=== PATIENT | male | born 1945 | race Caucasian/White ===

== ENCOUNTER → 2018-02-07 | Outpatient (CLI) | payer OTHER ==
[~2018-02-07] MED LIST: REGADENOSON 0.4 MG/5 ML SYRINGE ONE
== END | disposition home or self-care (01) ==
LOC: CFH 06:59
PROVIDERS: ATTEND Internal Medicine Cardiovascular Disease
DX: I25.9 Chronic ischemic heart disease, unspecified (principal); I10 Essential (primary) hypertension
CPT/HCPCS: 78452; 93017; 93306; A9502; J2785

== ENCOUNTER 2019-04-25 18:04 | Inpatient (IN) | payer MEDICARE, OTHER ==
[~2019-04-25] VITALS: Ht 175.3 cm; Wt 91.5 kg
[2019-04-25] MEDS ORDERED: SODIUM CHLORIDE 0.9% 1,000ML IVBOLUS ONE (18:30)
[2019-04-25 18:50] LABS: PH, VENOUS 7.334 pH (7.320-7.420)
[2019-04-25 18:51] LABS: O2 FLOW ROOM AIR L/min
[2019-04-25 18:58] LABS: BASOPHILS # (AUTO) 0.03 x10^3/uL (0-0.1); BASOPHILS % (AUTO) 0 % (0-1); EOSINOPHILS # (AUTO) 0.21 x10^3/uL (0-0.4); EOSINOPHILS % (AUTO) 2 % (1-7); LYMPHOCYTES # (AUTO) 1.25 x10^3/uL (1-3.4); LYMPHOCYTES % (AUTO) 11 % (22-44); MD NO; MEAN CORPUSCULAR HEMOGLOBIN 29.9 pg (27.5-34.5); MEAN CORPUSCULAR VOLUME 87.9 fL (81-97); MEAN PLATELET VOLUME 10.3 fL (7.4-10.4); MONOCYTES # (AUTO) 0.62 x10^3/uL (0.2-0.8); MONOCYTES % (AUTO) 6 % (2-9); NEUTROPHILS # (AUTO) 9.09 x10^3/uL (1.8-6.8); NEUTROPHILS % (AUTO) 81 % (42-75); PLATELET COUNT 202 x10^3/uL (130-400); RED BLOOD COUNT 4.64 x10^6/uL (4.38-5.82); RED CELL DISTRIBUTION WIDTH 12.8 % (9.4-14.8)
[2019-04-25 19:05] LABS: ALANINE AMINOTRANSFERASE 24 U/L (12-78); ALBUMIN 3.3 g/dL (3.4-5.0); ANION GAP 10 mmol/L (5-15); CALCIUM 9.1 mg/dL (8.5-10.1); CHLORIDE 100 mmol/L (98-107)
[2019-04-25 19:09] LABS: ALKALINE PHOSPHATASE 125 U/L (45-117); BILIRUBIN,TOTAL 0.5 mg/dL (0.2-1.0); CREATININE 3.24 mg/dL (0.7-1.3); TOTAL PROTEIN 7.8 g/dL (6.4-8.2); TROPONIN I 0.031 ng/mL (0.000-0.045)
[2019-04-25 19:18] LABS: ACETONE, SERUM Trace (Negative)
[2019-04-25] MEDS ORDERED: SODIUM CHLORIDE 0.9% 1,000 ML IV ONE (19:19)
[2019-04-25] MEDS ORDERED: INSULIN SINGLE DOSE, ER ONE (19:29)
[2019-04-25] MEDS ORDERED: INSULIN REGULAR 100 UNITS/ML, 3ML VIAL IV ONE (19:30)
--- NOTE | 2019-04-25 19:35 | NUR ---
LATE ENTRY: LATOYA LANTIGUA TOOK REPORT FROM [facility], REPORT RECEIVED FROM LATOYA LANTIGUA. THIS IS A 73 YO MALE BIB [facility] FOR NEAR SYNCOPAL EVENT AND HIGH BLOOD SUGAR. PATIENT A&OX4, POOR HISTORIAN AND MILDLY CONFUSED WITH RAMBLING SPEECH. HX OF DIABETES, DOES NOT TAKE INSULIN AT HOME, TAKES PO MEDS FOR DIABETES. 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 NAD, ALL MONITORING IN PLACE. IVF BOLUS COMPLETED, SECOND IVF RUNNING AT 250ML/HR. PATIENT MEDICATED PER EMAR WITH 5 UNITS REGULAR INSULIN.
[2019-04-25] MEDS ORDERED: AMLO10TA8 PO (19:45)
[2019-04-25] MEDS ORDERED: LINA1TAB5 PO (19:47)
[2019-04-25] MEDS ORDERED: ATOR-2 PO (19:47)
[2019-04-25] MEDS ORDERED: ATEN25TA PO (19:48)
[2019-04-25] MEDS ORDERED: HYDR25TA6 PO (19:48)
[2019-04-25] MEDS ORDERED: LISI5TAB7 PO (19:49)
[2019-04-25] MEDS ORDERED: INSU100C SQ-INSULIN (19:53)
[2019-04-25] MEDS ORDERED: SEMA0.25 INJ (19:54)
--- NOTE | 2019-04-25 20:12 | NUR ---
REPORT GIVEN TO LATOYA OLSEN. PLAN OF CARE DISCUSSED. LATOYA OLSEN AWARE IVF RUNNING AT TIME OF TRANSFER
[2019-04-25] MEDS ORDERED: OXYcodone IR 5MG TABLET PO PRN (20:30)
[2019-04-25] MEDS ORDERED: POLYETHYLENE GLYCOL 17 GM PACKET PO PRN (20:30)
[2019-04-25] MEDS ORDERED: DOCUSATE 100 MG CAPSULE PO PRN (20:30)
[2019-04-25] MEDS ORDERED: ONDANSETRON 2MG/ML, 2ML IVPush PRN (20:30)
[2019-04-25] MEDS ORDERED: ACETAMINOPHEN 325 MG TABLET PO PRN (20:30)
[2019-04-25] MEDS ORDERED: PROMETHAZINE 25 MG/ML, 1ML IM PRN (20:30)
[2019-04-25] MEDS ORDERED: ONDANSETRON ODT 4 MG PO PRN (20:30)
[2019-04-25] MEDS ORDERED: hydrALAzine 20 MG/ML, 1ML IVPush PRN (20:30)
[2019-04-25] MEDS ORDERED: BISACODYL 10 MG SUPP PR PRN (20:30)
[2019-04-25] MEDS ORDERED: morphine SULFATE 10 MG/ML, 1ML IVPush PRN (20:30)
[2019-04-25 21:00] LABS: FREE T4 (FREE THYROXINE) 1.45 ng/dL (0.76-1.46)
[2019-04-25] MEDS ORDERED: INSULIN GLARGINE 100 UNITS/ML, PEN SQ-INSULIN SCH (21:00)
[2019-04-25 21:46] VITALS: BP 155/44
[2019-04-25 21:48] VITALS: BP 147/72
[2019-04-25 21:50] VITALS: BP 143/70
[2019-04-25 22:22] LABS: MICROSCOPIC AUTO
[2019-04-25 22:25] LABS: CULTURE INDICATED? NO
[2019-04-25] MEDS: HEPARIN 5,000 UNITS/ML, 1ML SQ SCH (22:53)
[2019-04-25] MEDS: ATORVASTATIN 40 MG TABLET PO SCH (22:53)
[2019-04-25] MEDS: INSULIN LISPRO 100 UNITS/ML, PEN SQ-INSULIN SCH (22:53)
[2019-04-26] VITALS (7 sets, daily range): BP systolic 132–177; BP diastolic 63–87
[2019-04-26 00:17] LABS: TROPONIN I 0.037 ng/mL (0.000-0.045)
[2019-04-26] MEDS: SODIUM CHLORIDE 0.9% 1,000 ML IV SCH ×4 (00:26→20:21)
[2019-04-26 03:30] LABS: BASOPHILS # (AUTO) 0.02 x10^3/uL (0-0.1); BASOPHILS % (AUTO) 0 % (0-1); EOSINOPHILS # (AUTO) 0.21 x10^3/uL (0-0.4); EOSINOPHILS % (AUTO) 2 % (1-7); LYMPHOCYTES # (AUTO) 1.83 x10^3/uL (1-3.4); LYMPHOCYTES % (AUTO) 18 % (22-44); MD NO; MEAN CORPUSCULAR HEMOGLOBIN 30.1 pg (27.5-34.5); MEAN CORPUSCULAR HGB CONC 34.1 g/dL (33.2-36.2); MEAN CORPUSCULAR VOLUME 88.3 fL (81-97); MEAN PLATELET VOLUME 10.9 fL (7.4-10.4); MONOCYTES # (AUTO) 0.73 x10^3/uL (0.2-0.8); MONOCYTES % (AUTO) 7 % (2-9); NEUTROPHILS # (AUTO) 7.61 x10^3/uL (1.8-6.8); NEUTROPHILS % (AUTO) 73 % (42-75); PLATELET COUNT 168 x10^3/uL (130-400); RED BLOOD COUNT 4.04 x10^6/uL (4.38-5.82); RED CELL DISTRIBUTION WIDTH 12.6 % (9.4-14.8)
[2019-04-26 03:39] LABS: ALBUMIN 2.7 g/dL (3.4-5.0); ANION GAP 7 mmol/L (5-15); CALCIUM 8.3 mg/dL (8.5-10.1); CHLORIDE 107 mmol/L (98-107)
[2019-04-26 03:45] LABS: ALANINE AMINOTRANSFERASE 18 U/L (12-78); ALKALINE PHOSPHATASE 98 U/L (45-117); BILIRUBIN,TOTAL 0.5 mg/dL (0.2-1.0); CHOL/HDL RATIO 7.8; CHOLESTEROL, TOTAL 163 mg/dL (140-239); CREATININE 2.65 mg/dL (0.7-1.3); HDL CHOL % 13 % (26-37); HDL CHOLESTEROL (DIRECT) 21 mg/dL (40-60); TOTAL PROTEIN 6.5 g/dL (6.4-8.2); TRIGLYCERIDES 438 mg/dL (50-200)
[2019-04-26 03:49] LABS: TROPONIN I 0.043 ng/mL (0.000-0.045)
[2019-04-26] MEDS: HEPARIN 5,000 UNITS/ML, 1ML SQ SCH ×2 (06:01→16:06)
[2019-04-26] MEDS: ATENOLOL 100 MG TABLET PO SCH (08:00)
[2019-04-26] MEDS: INSULIN LISPRO 100 UNITS/ML, PEN SQ-INSULIN SCH ×4 (08:00→20:20)
[2019-04-26] MEDS: AMLODIPINE 10 MG TAB PO SCH (08:00)
[2019-04-26] MEDS: POTASSIUM CHLORIDE 20 MEQ TAB.ER.PRT PO SCH (16:49)
[2019-04-26] MEDS: ATORVASTATIN 40 MG TABLET PO SCH (20:19)
[2019-04-26] MEDS: INSULIN GLARGINE 100 UNITS/ML, PEN SQ-INSULIN SCH (20:20)
[2019-04-27 00:09] VITALS: BP 143/71
[2019-04-27] MEDS: HEPARIN 5,000 UNITS/ML, 1ML SQ SCH ×3 (00:49→17:11)
[2019-04-27] MEDS: SODIUM CHLORIDE 0.9% 1,000 ML IV SCH (05:34)
[2019-04-27 06:24] LABS: BASOPHILS # (AUTO) 0.06 x10^3/uL (0-0.1); BASOPHILS % (AUTO) 1 % (0-1); EOSINOPHILS # (AUTO) 0.22 x10^3/uL (0-0.4); EOSINOPHILS % (AUTO) 3 % (1-7); LYMPHOCYTES # (AUTO) 1.75 x10^3/uL (1-3.4); LYMPHOCYTES % (AUTO) 22 % (22-44); MD NO; MEAN CORPUSCULAR HEMOGLOBIN 29.9 pg (27.5-34.5); MEAN CORPUSCULAR HGB CONC 34.1 g/dL (33.2-36.2); MEAN CORPUSCULAR VOLUME 87.7 fL (81-97); MEAN PLATELET VOLUME 10.3 fL (7.4-10.4); MONOCYTES # (AUTO) 0.61 x10^3/uL (0.2-0.8); MONOCYTES % (AUTO) 8 % (2-9); NEUTROPHILS # (AUTO) 5.22 x10^3/uL (1.8-6.8); NEUTROPHILS % (AUTO) 66 % (42-75); PLATELET COUNT 163 x10^3/uL (130-400); RED BLOOD COUNT 4.24 x10^6/uL (4.38-5.82)
[2019-04-27 06:38] LABS: ANION GAP 7 mmol/L (5-15); CALCIUM 8.3 mg/dL (8.5-10.1); CHLORIDE 110 mmol/L (98-107)
[2019-04-27 06:39] LABS: CREATININE 2.05 mg/dL (0.7-1.3)
[2019-04-27] MEDS: INSULIN LISPRO 100 UNITS/ML, PEN SQ-INSULIN SCH ×4 (07:35→20:55)
[2019-04-27] MEDS ORDERED: POTASSIUM CHLORIDE 10% 40 MEQ/30 ML UDC PO ONE (08:00)
[2019-04-27 08:27] VITALS: BP 142/73
[2019-04-27] MEDS: POTASSIUM CHLORIDE 20 MEQ TAB.ER.PRT PO SCH (08:49)
[2019-04-27] MEDS: NS + 20MEQ KCL 1,000 ML IV SCH ×2 (08:49→17:11)
[2019-04-27] MEDS: AMLODIPINE 10 MG TAB PO SCH (08:50)
[2019-04-27] MEDS: ATENOLOL 100 MG TABLET PO SCH (08:50)
[2019-04-27 13:24] VITALS: BP 140/85
[2019-04-27 14:17] LABS: ANION GAP 6 mmol/L (5-15); CALCIUM 8.1 mg/dL (8.5-10.1); CHLORIDE 109 mmol/L (98-107)
[2019-04-27 20:04] VITALS: BP 162/83
[2019-04-27] MEDS: ATORVASTATIN 40 MG TABLET PO SCH (20:54)
[2019-04-27] MEDS: INSULIN GLARGINE 100 UNITS/ML, PEN SQ-INSULIN SCH (20:55)
[2019-04-28] MEDS: NS + 20MEQ KCL 1,000 ML IV SCH ×2 (00:49→09:27)
[2019-04-28] MEDS: HEPARIN 5,000 UNITS/ML, 1ML SQ SCH ×2 (00:49→08:42)
[2019-04-28 00:55] VITALS: BP 138/75
[2019-04-28 06:30] LABS: ANION GAP 6 mmol/L (5-15); CALCIUM 8.5 mg/dL (8.5-10.1); CHLORIDE 113 mmol/L (98-107)
[2019-04-28 06:33] LABS: CREATININE 1.74 mg/dL (0.7-1.3)
[2019-04-28 08:00] VITALS: BP 134/80
[2019-04-28] MEDS: AMLODIPINE 10 MG TAB PO SCH (08:42)
[2019-04-28] MEDS: ATENOLOL 100 MG TABLET PO SCH (08:42)
[2019-04-28] MEDS: INSULIN LISPRO 100 UNITS/ML, PEN SQ-INSULIN SCH (08:43)
[2019-04-28] MEDS ORDERED: INSU100I13 SQ-INSULIN (09:08)
== END 2019-04-28 12:16 | disposition home or self-care (01) | DRG 70 ==
LOC: ED 20:00 → EDIP 21:34 → 4EST 21:45 → DCLOUNGE 04-28 12:01
PROVIDERS: ADMIT Internal Medicine; ATTEND Family Medicine
DX: G93.41 Metabolic encephalopathy (principal); N17.0 Acute kidney failure with tubular necrosis; E11.65 Type 2 diabetes mellitus with hyperglycemia; R55 Syncope and collapse; E86.0 Dehydration; E11.22 Type 2 diabetes mellitus with diabetic chronic kidney disease; E78.5 Hyperlipidemia, unspecified; E87.6 Hypokalemia; I13.10 Hypertensive heart and chronic kidney disease without heart failure, with stage 1 through stage 4 chronic kidney disease, or unspecified chronic kidney disease; N18.9 Chronic kidney disease, unspecified; Z79.4 Long term (current) use of insulin; Z91.19 Patient's noncompliance with other medical treatment and regimen
CPT/HCPCS: 36415; 71045; 80048; 80053; 80061; 81001; 82010; 82803; 82962; 83036; 83735; 84439; 84443; 84484; 85025; 93005; 93306; 96374; G0378; J1644; J3480; J1815; J7030